=== PATIENT | male | born 1955 | race American Indian/Alaskan Native ===

== ENCOUNTER 2017-05-23 05:39 | Emergency (ER) | payer MEDICARE ==
[2017-05-23 05:48] VITALS: BP 157/97
--- NOTE | 2017-05-23 07:32 | Emergency Department Report ---
ED Rash HPI - HPI Chief Complaint: Extremity Injury, Lower Stated Complaint: L TOE INJURY Time Seen by Provider: 05/23/17 07:25 Duration: 1 month Location: Lower Extremities (fourth toe skin abrasion) Suspected Cause: Other (Ill-fitting shoes) Rash Symptoms: Yes Blistering ( left fourth toe), No Itching, No Facial Swelling , No Tongue/Oral Swelling, No Breathing Difficulties, No Choking Sensation, No Wheezing/Dyspnea, No Peeling, No Fever, No Lightheaded, No Malaise, No Myalgias Severity: severe (7/10) Other History: Patient reports that he has blisters on his left fourth toe times one month. He said his bit worried ill fitting shoes. He states toe is painful at 7 out of 10 and sore. Forced to walk and better with rest then. Over the counter medication taken without any relief. Patient also complained of itching between his toes for the last couple weeks. Denies any respiratory symptoms. Denies any nausea or vomiting. Patient denies that he is diabetic. He does see a foot doctor in a row. Patient said he is here for all call recovery program and needs to be in this ear for 28 days. He's had previous incident of past. History of chronic back pain and hardware in his back. He said he does have a primary care physician in [place]. Denies any fever or chills. Denies any numbness or tingling to toes on both feet. ED Review of Systems ROS: Stated complaint: L TOE INJURY Other details as noted in HPI Comment: All other systems reviewed and negative Constitutional: no symptoms reported Respiratory: no symptoms reported Cardiovascular: denies: chest pain, palpitations, edema, syncope Gastrointestinal: denies: nausea, vomiting Musculoskeletal: arthralgia. denies: back pain, joint swelling, myalgia Skin: pruritus, other (blister to left fourth toe with pain. Pain of itching between toes to both feet.) Neurological: denies: headache, numbness, paresthesias, confusion, abnormal gait , vertigo ED Past Medical Hx - Past Medical History Previous Medical History?: Yes Additional medical history: Chronic Back Pain - Surgical History Past Surgical History?: Yes Additional Surgical History: Hardware in back. - Family History Family history: hypertension - Social History Smoking Status: Current Every Day Smoker Substance Use Type: Alcohol Other Social History: She is currently in alcohol recovery program - Medications Home Medications: Home Medications Medication Instructions Recorded Confirmed Last Taken Type Cephalexin [Keflex] 500 mg PO Q8HR #21 cap 05/23/17 Unknown Rx Econazole 1% [Spectazole] 1 applicatio TP BID #1 tube 05/23/17 Unknown Rx Fluconazole [Diflucan TAB] 100 mg PO QDAY #2 tablet 05/23/17 Unknown Rx Ibuprofen [Motrin] 600 mg PO Q8H PRN #15 tablet 05/23/17 Unknown Rx Rash Exam - Exam General: Vital signs noted. No distress. Alert and acting appropriately. This is a 62-year-old male well-nourished well-developed in no acute distress. He is currently visiting from alcohol recovery program HEENT: No Periorbital Edema, No Conjuctival Injection, No Chemosis, No Perioral Edema, No Tongue Edema, No Uvular Edema, No Compromised Airway, No Drooling Lungs: Yes Good Air Exchange, No Wheezes, No Ronchi, No Stridor, No Cough, No Labored Respirations, No Retractions, No Use of Accessory Muscles, No Other Abnormal Lung Sounds Heart: Yes Regular, No Murmur Skin: Yes Tenderness (distal phalanx of left fourth toe), Yes Erythema ( erythemic area noted to distal phalanx left fourth toe.), Yes Other (noted dry scaly area between toes of both feet. No erythema. Ear moist.), No Urticarial Rash, No Maculopapular Rash, No Morbilliform rash, No Bulla(e), No Excoriations , No Weeping, No Edema, No Encrustations Other: Positive: Abdomen Normal, Neurologic Normal, Musculoskeletal Normal ED Course Vital Signs 05/23/17 05:45 Temperature 97.5 F L Pulse Rate 65 Respiratory 18 Rate Blood Pressure 157/97 O2 Sat by Pulse 100 Oximetry - Reevaluation(s) Reevaluation #1: 05/23/17 07:59 Patient stable throughout ED stay. He had areas to both feet cleansed. Patient also had Neosporin ointment placed to left distal phalanx that fourth toe with sterile dressing. He said his immunizations include tetanus is up-to- date. ED Medical Decision Making - Radiology Data Radiology results: report reviewed X-ray of left foot reveal no acute processes. No acute fracture or dislocation - Medical Decision Making ED Course:Patient here for complaints of dryness and scaling between toes to both feet and also blister to left fourth toe. X-ray of left foot reveal no acute bony abnormality. Area to left great toe plans with normal saline and Neosporin ointment placed the site followed by sterile dry dressing. Patient tetanus shot is up-to-date. I also discussed with patient that he has fungus to his feet between his toes and he'll need topical antifungal and also antibiotic to prevent from getting infection. He agrees to discharge treatment plan and diagnosis and discharged back to alcohol recovery program. Patient was given Motrin 800 mg emergency room and I instructed him that he needs to follow up with a foot doctor and will refer him to a foot doctor that is locally because he is going to be in the area for 28 days and his foot doctor where he lives's in [facility]. Patient is stable and discharged home with prescription physician for Econazole cream, motrin, Diflucan and Keflex Critical care attestation.: If time is entered above; I have spent that time in minutes in the direct care of this critically ill patient, excluding procedure time. ED Disposition Clinical Impression: Arthralgia of left foot Tinea pedis Qualifiers: Laterality: bilateral Qualified Code(s): B35.3 - Tinea pedis Foot abrasion, infected Qualifiers: Encounter type: initial encounter Laterality: left Qualified Code(s): S90.812A - Abrasion, left foot, initial encounter; L08.9 - Local infection of the skin and subcutaneous tissue, unspecified; L08.9 - Local infection of the skin and subcutaneous tissue, unspecified Disposition: DC-01 TO HOME OR SELFCARE Is pt being admited?: No Does the pt Need Aspirin: No Condition: Stable Instructions: Arthralgia (ED), Abrasion (ED), Antifungals (On the skin), Acute Wound Care (ED), Cellulitis (ED) Additional Instructions: Please keep affected areas clean and dry Apply antifungal cream to the feet between toes is instructed Take Antibiotic for infected abrasion to left fourth toe Apply Neosporin ointment to left fourth toe once daily and placed sterile dry dressing to site Follow-up with as recommended. Avoid wearing Wearing ill fitting shoe Prescriptions: Cephalexin [Keflex] 500 mg PO Q8HR #21 cap Econazole 1% [Spectazole] 1 applicatio TP BID #1 tube Fluconazole [Diflucan TAB] 100 mg PO QDAY #2 tablet Ibuprofen [Motrin] 600 mg PO Q8H PRN #15 tablet PRN Reason: Pain Referrals: JOANNA DUNN DPM [Staff Physician] - 2-3 Days Forms: Work/School Release Form(ED)
[2017-05-23] MEDS ORDERED: TRIPLE ANTIBIOTIC TP ONE (08:00)
[2017-05-23] MEDS ORDERED: MOTRIN PO ONE (08:02)
--- NOTE | 2017-05-23 08:12 | XRay Report ---
LEFT FOOT: Pain. The bony architecture is intact. Bony alignment is normal. No soft tissue abnormalities are seen. The joint spaces appear preserved. IMPRESSION: Normal left foot.
== END 2017-05-23 08:31 | disposition home or self-care (01) ==
LOC: ED 05:39
DX: S90.812A Abrasion, left foot, initial encounter (principal); M25.572 Pain in left ankle and joints of left foot; B35.3 Tinea pedis; L08.9 Local infection of the skin and subcutaneous tissue, unspecified; F17.200 Nicotine dependence, unspecified, uncomplicated; G89.29 Other chronic pain; X58.XXXA Exposure to other specified factors, initial encounter; Y93.89 Activity, other specified; Y99.8 Other external cause status; Y92.89 Other specified places as the place of occurrence of the external cause
CPT/HCPCS: 99283; A6250

== ENCOUNTER 2017-05-28 07:46 | Emergency (ER) | payer MEDICARE ==
[2017-05-28 09:09] VITALS: BP 150/105
--- NOTE | 2017-05-28 10:19 | Emergency Department Report ---
ED Medical Clearance HPI - General Chief complaint: Medical Clearance Stated complaint: MED REFILL Time Seen by Provider: 05/28/17 10:15 Source: patient Mode of arrival: Ambulatory - History of Present Illness Initial comments: Pt reports hx of CAD s/p stents and usually carries Nitro with him but lost it the other day. States he hasn't used it in a while but likes to have it with him. Denies any current or recent SOB, CP, or other complaints. -: Gradual, days(s) Reason for Medical Clearance: other (med refill) Compliant with Home Medications: Yes Traumatic Symptoms: denies traumatic injury Associated Symptoms: denies other symptoms. denies: chest pain, shortness of breath, palpitations, diaphoresis Treatments Prior to Arrival: none Home medications: Previous Rx's Medication Instructions Recorded Last Taken Type Cephalexin [Keflex] 500 mg PO Q8HR #21 cap 05/23/17 Unknown Rx Econazole 1% [Spectazole] 1 applicatio TP BID #1 tube 05/23/17 Unknown Rx Fluconazole [Diflucan TAB] 100 mg PO QDAY #2 tablet 05/23/17 Unknown Rx Ibuprofen [Motrin] 600 mg PO Q8H PRN #15 tablet 05/23/17 Unknown Rx Nitroglycerin [Nitrostat] 0.4 mg SL Q5M PRN #25 tab 05/28/17 Unknown Rx Allergies/Adverse reactions: Allergies Allergy/AdvReac Type Severity Reaction Status Date / Time No Known Allergies Allergy Unverified 05/23/17 06:00 ED Review of Systems ROS: Stated complaint: MED REFILL Other details as noted in HPI Constitutional: denies: chills, fever Eyes: denies: eye pain, eye discharge, vision change ENT: denies: ear pain, throat pain Respiratory: denies: cough, shortness of breath, wheezing Cardiovascular: denies: chest pain, palpitations Endocrine: no symptoms reported Gastrointestinal: denies: abdominal pain, nausea, diarrhea Genitourinary: denies: urgency, dysuria Musculoskeletal: denies: back pain, joint swelling, arthralgia Skin: denies: rash, lesions Neurological: denies: headache, weakness, paresthesias Psychiatric: denies: anxiety, depression Hematological/Lymphatic: denies: easy bleeding, easy bruising ED Past Medical Hx - Past Medical History Previous Medical History?: Yes Additional medical history: Chronic Back Pain - Surgical History Past Surgical History?: Yes Additional Surgical History: Hardware in back. Stents - Social History Smoking Status: Current Some Day Smoker Substance Use Type: None - Medications Home Medications: Home Medications Medication Instructions Recorded Confirmed Last Taken Type Cephalexin [Keflex] 500 mg PO Q8HR #21 cap 05/23/17 Unknown Rx Econazole 1% [Spectazole] 1 applicatio TP BID #1 tube 05/23/17 Unknown Rx Fluconazole [Diflucan TAB] 100 mg PO QDAY #2 tablet 05/23/17 Unknown Rx Ibuprofen [Motrin] 600 mg PO Q8H PRN #15 tablet 05/23/17 Unknown Rx Nitroglycerin [Nitrostat] 0.4 mg SL Q5M PRN #25 tab 05/28/17 Unknown Rx ED Physical Exam - General Limitations: No Limitations General appearance: alert, in no apparent distress - Head Head exam: Present: atraumatic, normocephalic - Eye Eye exam: Present: normal appearance - ENT ENT exam: Present: mucous membranes moist - Neck Neck exam: Present: normal inspection - Respiratory Respiratory exam: Present: normal lung sounds bilaterally. Absent: respiratory distress - Cardiovascular Cardiovascular Exam: Present: regular rate, normal rhythm. Absent: systolic murmur, diastolic murmur, rubs, gallop - GI/Abdominal GI/Abdominal exam: Present: soft, normal bowel sounds - Rectal Rectal exam: Present: deferred - Extremities Exam Extremities exam: Present: normal inspection - Back Exam Back exam: Present: normal inspection - Neurological Exam Neurological exam: Present: alert, oriented X3 - Psychiatric Psychiatric exam: Present: normal affect, normal mood - Skin Skin exam: Present: warm, dry, intact, normal color. Absent: rash ED Course Vital Signs 05/28/17 09:08 Temperature 98.5 F Pulse Rate 89 Respiratory 16 Rate Blood Pressure 150/105 O2 Sat by Pulse 99 Oximetry - Reevaluation(s) Reevaluation #1: 05/28/17 10:17 Pt is in NAD and stable for d/c. ED Medical Decision Making - Medical Decision Making Pt asymptomatic. Will refill until his PCP appt next week. - Differential Diagnosis med refill, elevated bp ED Disposition Clinical Impression: Medication refill Disposition: DC-01 TO HOME OR SELFCARE Is pt being admited?: No Condition: Good Instructions: Nitroglycerin (By mouth) Prescriptions: Nitroglycerin [Nitrostat] 0.4 mg SL Q5M PRN #25 tab PRN Reason: Chest Pain Referrals: PRIMARY CARE,MD [Primary Care Provider] - 3-5 Days Time of Disposition: 10:18
== END 2017-05-28 10:38 | disposition home or self-care (01) ==
LOC: ED 07:46
DX: Z76.0 Encounter for issue of repeat prescription (principal); G89.29 Other chronic pain; F17.200 Nicotine dependence, unspecified, uncomplicated
CPT/HCPCS: 99282

== ENCOUNTER 2017-05-29 08:42 | Emergency (ER) | payer MEDICARE ==
[2017-05-29 08:59] VITALS: BP 154/104
--- NOTE | 2017-05-29 10:57 | Emergency Department Report ---
ED Recheck HPI - General Chief Complaint: Extremity Injury, Lower Stated Complaint: LEFT TOE PAIN Time Seen by Provider: 05/29/17 10:45 Source: patient Mode of arrival: Ambulatory Limitations: No Limitations - History of Present Illness Initial Comments: This is a 62-year-old male nontoxic, well nourished in appearance, no acute signs of distress presents to the ED for medication refill. Patient stated he was seen here on 05/23/2017 and was diagnosed with a fungal toe infection and received different prescriptions but patient stated he never filled it and is the symptoms are not resolving. Patient denies any trauma to the region or changing of symptoms. Patient denies any numbness, tingling, fever, chills, nausea, vomiting, chest pain or shortness of breath. Patient denies history of diabetes. Patient denies any drug allergies. Past medical history includes hypertension and NC. MD Complaint: medication refill request Initial Visit For: other (tinea pedis) Returns Today for: request for prescription Symptoms Since Prior Visit: no new symptoms Associated Symptoms: none. denies: fever, chills, chest pain, shortness of breath, rash, malaise, nasuea, abdominal pain - Related Data Previous Rx's Medication Instructions Recorded Last Taken Type Cephalexin [Keflex] 500 mg PO Q8HR #21 cap 05/23/17 Unknown Rx Econazole 1% [Spectazole] 1 applicatio TP BID #1 tube 05/23/17 Unknown Rx Fluconazole [Diflucan TAB] 100 mg PO QDAY #2 tablet 05/23/17 Unknown Rx Ibuprofen [Motrin] 600 mg PO Q8H PRN #15 tablet 05/23/17 Unknown Rx Nitroglycerin [Nitrostat] 0.4 mg SL Q5M PRN #25 tab 05/28/17 Unknown Rx Cephalexin [Keflex] 500 mg PO Q8HR #21 cap 05/29/17 Unknown Rx Econazole 1% [Spectazole] 1 applicatio TP BID #1 tube 05/29/17 Unknown Rx Fluconazole [Diflucan] 100 mg PO QDAY #2 bottle 05/29/17 Unknown Rx Ibuprofen [Motrin 600 MG tab] 600 mg PO Q8H PRN #30 tablet 05/29/17 Unknown Rx Allergies Allergy/AdvReac Type Severity Reaction Status Date / Time No Known Allergies Allergy Unverified 05/23/17 06:00 ED Review of Systems ROS: Stated complaint: LEFT TOE PAIN Other details as noted in HPI Constitutional: denies: chills, fever Eyes: denies: eye pain, eye discharge, vision change ENT: denies: ear pain, throat pain Respiratory: denies: cough, shortness of breath, wheezing Cardiovascular: denies: chest pain, palpitations Endocrine: no symptoms reported Gastrointestinal: denies: abdominal pain, nausea, diarrhea Genitourinary: denies: urgency, dysuria Musculoskeletal: denies: back pain, joint swelling, arthralgia Skin: denies: rash, lesions Neurological: denies: headache, weakness, paresthesias Psychiatric: denies: anxiety, depression Hematological/Lymphatic: denies: easy bleeding, easy bruising ED Past Medical Hx - Past Medical History Hx Hypertension: Yes Hx Heart Attack/AMI: Yes Additional medical history: Chronic Back Pain - Surgical History Additional Surgical History: Hardware in back. Stents - Social History Smoking Status: Never Smoker Substance Use Type: None - Medications Home Medications: Home Medications Medication Instructions Recorded Confirmed Last Taken Type Cephalexin [Keflex] 500 mg PO Q8HR #21 cap 05/23/17 Unknown Rx Econazole 1% [Spectazole] 1 applicatio TP BID #1 tube 05/23/17 Unknown Rx Fluconazole [Diflucan TAB] 100 mg PO QDAY #2 tablet 05/23/17 Unknown Rx Ibuprofen [Motrin] 600 mg PO Q8H PRN #15 tablet 05/23/17 Unknown Rx Nitroglycerin [Nitrostat] 0.4 mg SL Q5M PRN #25 tab 05/28/17 Unknown Rx Cephalexin [Keflex] 500 mg PO Q8HR #21 cap 05/29/17 Unknown Rx Econazole 1% [Spectazole] 1 applicatio TP BID #1 tube 05/29/17 Unknown Rx Fluconazole [Diflucan] 100 mg PO QDAY #2 bottle 05/29/17 Unknown Rx Ibuprofen [Motrin 600 MG tab] 600 mg PO Q8H PRN #30 tablet 05/29/17 Unknown Rx ED Physical Exam - General Limitations: No Limitations General appearance: alert, in no apparent distress - Head Head exam: Present: atraumatic, normocephalic - Eye Eye exam: Present: normal appearance Pupils: Present: normal accommodation - ENT ENT exam: Present: normal exam, mucous membranes moist - Neck Neck exam: Present: normal inspection, full ROM - Respiratory Respiratory exam: Present: normal lung sounds bilaterally. Absent: respiratory distress - Cardiovascular Cardiovascular Exam: Present: regular rate, normal rhythm, normal heart sounds. Absent: systolic murmur, diastolic murmur, rubs, gallop - GI/Abdominal GI/Abdominal exam: Present: soft, normal bowel sounds. Absent: distended, tenderness, guarding, rebound, rigid, diminished bowel sounds - Rectal Rectal exam: Present: deferred - Extremities Exam Extremities exam: Present: normal inspection, full ROM, normal capillary refill. Absent: tenderness, pedal edema, joint swelling, calf tenderness - Expanded Lower Extremity Exam Left Hip exam: Present: normal inspection (bilateral exam), full ROM Upper Leg exam: Present: normal inspection (bilateral exam), full ROM Knee exam: Present: normal inspection (bilateral exam), full ROM Lower Leg exam: Present: normal inspection (bilateral exam), full ROM Ankle exam: Present: normal inspection (bilateral exam), full ROM Foot/Toe exam: Present: normal inspection (bilateral exam), full ROM, tenderness (distal phalanx of left fourth toe.), erythema (distal phalanx left fourth toe with dry scaly area between toes of both feet. ). Absent: swelling, abrasion, laceration, ecchymosis, deformity, crepidus, dislocation, amputation, puncture wound, foreign body, calcaneal tenderness, tenderness at base of 5th metatarsal, nail avulsion, subungual hematoma Neuro vascular tendon exam: Present: no vascular compromise. Absent: pulse deficit, abnormal cap refill, motor deficit, sensory deficit, tendon deficit, extremity cold to touch, pallor, abnormal 2-point discrimination, decreased fine /light touch, foot drop, peroneal nerve deficit, significant pain with passive ROM of distal joint Gait: Positive: observed and normal - Back Exam Back exam: Present: normal inspection, full ROM. Absent: tenderness, CVA tenderness (R), CVA tenderness (L), muscle spasm, paraspinal tenderness, rash noted - Neurological Exam Neurological exam: Present: alert, oriented X3, CN II-XII intact, normal gait, reflexes normal - Psychiatric Psychiatric exam: Present: normal affect, normal mood - Skin Skin exam: Present: warm, dry, intact, normal color. Absent: rash ED Course Vital Signs 05/29/17 08:55 Temperature 97.9 F Pulse Rate 93 H Respiratory 20 Rate Blood Pressure 154/104 - Reevaluation(s) Reevaluation #1: 05/29/17 10:59 Patient is speaking in full sentences with no signs of distress noted. ED Recheck MDM - Medical Decision Making This is a 62-year-old male that is here for a refill of his previous medication that he received on 05/23/2017. I obtain his previous records patient has been prescribed Keflex, ibuprofen, Diflucan, and Spectazole topical. I will refill this prescription and patient received a GoodRx card and information about pelvic/Kroeber that is a possible receding cheaper antibiotics. Patient was instructed to follow-up with a primary care doctor in 3-5 days or if symptoms worsen and continue return to emergency room as soon as possible possible. At time time of discharge, the patient does not seem toxic or ill in appearance. No acute signs of distress noted. Patient agrees to discharge treatment plan of care. No further questions noted by the patient. Critical care attestation.: If time is entered above; I have spent that time in minutes in the direct care of this critically ill patient, excluding procedure time. ED Disposition Clinical Impression: Tinea pedis Qualifiers: Laterality: bilateral Qualified Code(s): B35.3 - Tinea pedis Disposition: DC-01 TO HOME OR SELFCARE Is pt being admited?: No Does the pt Need Aspirin: No Condition: Stable Instructions: Tinea Pedis (ED) Additional Instructions: Follow-up with a primary care doctor in 3-5 days or if symptoms worsen and continue return to emergency room as soon as possible possible. Prescriptions: Cephalexin [Keflex] 500 mg PO Q8HR #21 cap Econazole 1% [Spectazole] 1 applicatio TP BID #1 tube Fluconazole [Diflucan] 100 mg PO QDAY #2 bottle Ibuprofen [Motrin 600 MG tab] 600 mg PO Q8H PRN #30 tablet PRN Reason: Pain Referrals: PRIMARY CARE, [Primary Care Provider] - 3-5 Days MIGUEL KEENAN MD [Staff Physician] - 3-5 Days [facility] [Outside] - 3-5 Days [facility] [Outside] - 3-5 Days
== END 2017-05-29 11:31 | disposition home or self-care (01) ==
LOC: ED 08:42
DX: B35.3 Tinea pedis (principal); I25.2 Old myocardial infarction; I10 Essential (primary) hypertension; G89.29 Other chronic pain
CPT/HCPCS: 99282

== ENCOUNTER 2017-06-20 10:53 | Emergency (ER) | payer MEDICARE ==
[2017-06-20 11:02] VITALS: BP 176/101
--- NOTE | 2017-06-20 12:38 | Emergency Department Report ---
ED Lower Extremity HPI - General Chief Complaint: Extremity Injury, Lower Stated Complaint: LEFT TOE PAIN Time Seen by Provider: 06/20/17 11:44 Source: patient Mode of arrival: Ambulatory Limitations: No Limitations - History of Present Illness Initial Comments: This is a 62-year-old male known to me nontoxic, well nourished in appearance, no acute signs of distress presents to the ED complaining of left toe pain x1 year. Patient was here on 05/29/2017 and was treated with fungal infection to the toes. Patient stated those symptoms are resolved and now wants to be treated for his toe pain. Patient denies any trauma to the regoin. Denies any numbness, tingling, fever, chills, headache, stiff neck, nausea, vomiting, chest pain, shortness of breathe, joint swelling, joint redness. Patient describes pain as aching with level of 8/10. Denies any allergies or PMH. MD Complaint: other (3rd toe pain) -: Gradual, year(s) (1) Injury: Toes: Left (3rd) Severity: mild Severity scale (0 -10): 8 Improves With: nothing Worsens With: nothing Associated Symptoms: ambulatory. denies: snap/pop sensation, swelling, numbness , tingling, unable to bear weight, able to partially bear weight - Related Data Previous Rx's Medication Instructions Recorded Last Taken Type Cephalexin [Keflex] 500 mg PO Q8HR #21 cap 05/23/17 Unknown Rx Econazole 1% [Spectazole] 1 applicatio TP BID #1 tube 05/23/17 Unknown Rx Fluconazole [Diflucan TAB] 100 mg PO QDAY #2 tablet 05/23/17 Unknown Rx Ibuprofen [Motrin] 600 mg PO Q8H PRN #15 tablet 05/23/17 Unknown Rx Nitroglycerin [Nitrostat] 0.4 mg SL Q5M PRN #25 tab 05/28/17 Unknown Rx Cephalexin [Keflex] 500 mg PO Q8HR #21 cap 05/29/17 Unknown Rx Econazole 1% [Spectazole] 1 applicatio TP BID #1 tube 05/29/17 Unknown Rx Fluconazole [Diflucan] 100 mg PO QDAY #2 bottle 05/29/17 Unknown Rx Ibuprofen [Motrin 600 MG tab] 600 mg PO Q8H PRN #30 tablet 05/29/17 Unknown Rx Ibuprofen [Motrin 600 MG tab] 600 mg PO Q8H PRN #30 tablet 06/20/17 Unknown Rx Allergies Allergy/AdvReac Type Severity Reaction Status Date / Time No Known Allergies Allergy Verified 06/20/17 10:58 ED Review of Systems ROS: Stated complaint: LEFT TOE PAIN Other details as noted in HPI Constitutional: denies: chills, fever Eyes: denies: eye pain, eye discharge, vision change ENT: denies: ear pain, throat pain Respiratory: denies: cough, shortness of breath, wheezing Cardiovascular: denies: chest pain, palpitations Endocrine: no symptoms reported Gastrointestinal: denies: abdominal pain, nausea, diarrhea Genitourinary: denies: urgency, dysuria Musculoskeletal: denies: back pain, joint swelling, arthralgia Skin: denies: rash, lesions Neurological: denies: headache, weakness, paresthesias Psychiatric: denies: anxiety, depression Hematological/Lymphatic: denies: easy bleeding, easy bruising ED Past Medical Hx - Past Medical History Hx Hypertension: Yes Hx Heart Attack/AMI: Yes Additional medical history: Chronic Back Pain - Surgical History Additional Surgical History: Hardware in back. Stents - Social History Smoking Status: Never Smoker Substance Use Type: None - Medications Home Medications: Home Medications Medication Instructions Recorded Confirmed Last Taken Type Cephalexin [Keflex] 500 mg PO Q8HR #21 cap 05/23/17 Unknown Rx Econazole 1% [Spectazole] 1 applicatio TP BID #1 tube 05/23/17 Unknown Rx Fluconazole [Diflucan TAB] 100 mg PO QDAY #2 tablet 05/23/17 Unknown Rx Ibuprofen [Motrin] 600 mg PO Q8H PRN #15 tablet 05/23/17 Unknown Rx Nitroglycerin [Nitrostat] 0.4 mg SL Q5M PRN #25 tab 05/28/17 Unknown Rx Cephalexin [Keflex] 500 mg PO Q8HR #21 cap 05/29/17 Unknown Rx Econazole 1% [Spectazole] 1 applicatio TP BID #1 tube 05/29/17 Unknown Rx Fluconazole [Diflucan] 100 mg PO QDAY #2 bottle 05/29/17 Unknown Rx Ibuprofen [Motrin 600 MG tab] 600 mg PO Q8H PRN #30 tablet 05/29/17 Unknown Rx Ibuprofen [Motrin 600 MG tab] 600 mg PO Q8H PRN #30 tablet 06/20/17 Unknown Rx ED Physical Exam - General Limitations: No Limitations General appearance: alert, in no apparent distress - Head Head exam: Present: atraumatic, normocephalic, normal inspection - Eye Eye exam: Present: normal appearance, PERRL, EOMI. Absent: scleral icterus, conjunctival injection, nystagmus, periorbital swelling, periorbital tenderness Pupils: Present: normal accommodation - ENT ENT exam: Present: normal exam, normal orophraynx, mucous membranes moist, TM's normal bilaterally, normal external ear exam - Neck Neck exam: Present: normal inspection, full ROM. Absent: tenderness, meningismus, lymphadenopathy, thyromegaly - Respiratory Respiratory exam: Present: normal lung sounds bilaterally. Absent: respiratory distress, wheezes, rales, rhonchi, stridor, chest wall tenderness, accessory muscle use, decreased breath sounds, prolonged expiratory - Cardiovascular Cardiovascular Exam: Present: regular rate, normal rhythm, irregular rhythm, normal heart sounds. Absent: bradycardia, tachycardia, systolic murmur, diastolic murmur, rubs, gallop - GI/Abdominal GI/Abdominal exam: Present: soft, normal bowel sounds. Absent: distended, tenderness, guarding, rebound, rigid, diminished bowel sounds - Rectal Rectal exam: Present: deferred - Extremities Exam Extremities exam: Present: normal inspection, full ROM, normal capillary refill. Absent: tenderness, pedal edema, joint swelling, calf tenderness - Expanded Lower Extremity Exam Left Hip exam: Present: normal inspection, full ROM Upper Leg exam: Present: normal inspection, full ROM Knee exam: Present: normal inspection, full ROM Lower Leg exam: Present: normal inspection, full ROM Ankle exam: Present: normal inspection, full ROM Foot/Toe exam: Present: normal inspection, full ROM, tenderness (0.5 cm round callus). Absent: swelling, abrasion, laceration, ecchymosis, deformity, crepidus, dislocation, erythema, amputation, puncture wound, foreign body, calcaneal tenderness, tenderness at base of 5th metatarsal, nail avulsion, subungual hematoma Neuro vascular tendon exam: Present: no vascular compromise. Absent: pulse deficit, abnormal cap refill, motor deficit, sensory deficit, tendon deficit, extremity cold to touch, pallor, abnormal 2-point discrimination, decreased fine /light touch, foot drop, peroneal nerve deficit, significant pain with passive ROM of distal joint Gait: Positive: observed and normal 1 - callus - Back Exam Back exam: Present: normal inspection, full ROM. Absent: tenderness, CVA tenderness (R), CVA tenderness (L), muscle spasm, paraspinal tenderness, vertebral tenderness, rash noted - Neurological Exam Neurological exam: Present: alert, oriented X3, CN II-XII intact, normal gait, reflexes normal - Psychiatric Psychiatric exam: Present: normal affect, normal mood - Skin Skin exam: Present: warm, dry, intact, normal color. Absent: rash ED Course Vital Signs 06/20/17 10:58 Temperature 97.6 F Pulse Rate 84 Respiratory 18 Rate Blood Pressure 176/101 O2 Sat by Pulse 98 Oximetry - Reevaluation(s) Reevaluation #1: 06/20/17 12:45 Patient is speaking in full sentences with no signs of distress noted. ED Lower Extremity MDM - Medical Decision Making 62-year-old male that presents with callus pain. Patient was examined by me and patient is stable. Patient will be treated for pain and gave follow-up instructions. Patient is hemodynamically stable with stable vital signs. Patient states he is feeling better. At time time of discharge, the patient does not seem toxic or ill in appearance. No acute signs of distress noted. Patient agrees to discharge treatment plan of care. No further questions noted by the patient. Franklin stated has medication for his blood pressure and just took it 30 mins [employer]EST[employer]ORDIN[employer]. Patient stated has PCP for follow-up of b/p. Patient was eduated about b/p control and my concerns. Patient stated will f/u with PCP for hypertension. Critical care attestation.: If time is entered above; I have spent that time in minutes in the direct care of this critically ill patient, excluding procedure time. ED Disposition Clinical Impression: Callus of foot Hypertension Qualifiers: Hypertension type: unspecified Qualified Code(s): I10 - Essential (primary) hypertension Disposition: - TO HOME OR SELFCARE Is pt being admited?: No Does the pt Need Aspirin: No Condition: Stable Instructions: Ibuprofen (By mouth), Hypertension (ED) Additional Instructions: Follow-up with a primary care doctor/chain dyer in 3-5 days or if symptoms worsen or continue return to emergency room as soon as possible. You have elevated blood pressure and you must take your medications and keep a low sodium intake and exercise. Follow-up with your primary care doctor in 24 hours for your blood pressure. Prescriptions: Ibuprofen [Motrin 600 MG tab] 600 mg PO Q8H PRN #30 tablet PRN Reason: Pain Referrals: PRIMARY CARE, [Primary Care Provider] - 3-5 Days KATHRIN RICH MD [Staff Physician] - 3-5 Days [facility] [Outside] - 3-5 Days [facility] [Outside] - 3-5 Days Forms: Work/School Release Form(ED)
== END 2017-06-20 13:06 | disposition home or self-care (01) ==
LOC: ED 10:53
DX: L84 Corns and callosities (principal); I10 Essential (primary) hypertension; I25.2 Old myocardial infarction; G89.29 Other chronic pain
CPT/HCPCS: 99282

== ENCOUNTER 2017-11-18 10:05 | Observation (INO) | payer MEDICARE ==
[2017-11-18] MEDS ORDERED: ASPIRIN PO ONE (10:20)
[2017-11-18 11:18] LABS: Basophils % (Auto) 0.9 % (0.0-1.8); Eosinophils # (Auto) 0.2 K/mm3 (0.0-0.4); Eosinophils % (Auto) 3.6 % (0.0-4.3); Hematocrit 39.6 % (35.5-45.6); Hemoglobin 13.1 gm/dl (11.8-15.2); Lymphocytes # (Auto) 1.1 K/mm3 (1.2-5.4); Lymphocytes % (Auto) 27.1 % (13.4-35.0); Mean Corpuscular HGB Conc 33 % (32-34); Mean Corpuscular Hemoglobin 26 pg (28-32); Mean Corpuscular Volume 80 fl (84-94); Monocytes # (Auto) 0.3 K/mm3 (0.0-0.8); Monocytes % (Auto) 7.6 % (0.0-7.3); Platelet Count 223 K/mm3 (140-440); Red Blood Count 4.95 M/mm3 (3.65-5.03)
[2017-11-18 11:40] LABS: BUN/Creatinine Ratio 16; Blood Urea Nitrogen 18 mg/dL (9-20); Calcium 9.3 mg/dL (8.4-10.2); Hemolysis Index 4
[2017-11-18] MEDS ORDERED: NACL 0.9% 1000 ML 1,000 ML IV ONE (12:00)
[2017-11-18] MEDS ORDERED: NACL 0.9% 1000 ML 1,000 ML ONE (12:02)
--- NOTE | 2017-11-18 13:35 | Emergency Department Report ---
ED Chest Pain HPI - General Chief Complaint: Chest Pain Stated Complaint: CP Time Seen by Provider: 11/18/17 12:46 Source: patient Mode of arrival: Ambulatory Limitations: No Limitations - History of Present Illness Initial Comments: Patient is a 62-year-old male who I think is residing at the [facility]. He states he went to the [facility] and requested a nitroglycerin. He is an outpatient there I believe for alcohol and cocaine abuse. He states that he is status post cardiac stenting in [facility]. He states he had chest pain and sweating/shortness of breath for about a half an hour this morning. He thinks he had a nitroglycerin it would have resolved. MD Complaint: chest pain -: Gradual Onset: during rest Pain Location: substernal Pain Radiation: none Severity: moderate Quality: tightness, heaviness Consistency: constant, now resolved Improves With: other (he believes nitroglycerin would've helped) Worsens With: nothing Context: other (coronary artery disease status post PCI) re: nausea, diaphoresis, dyspnea Other Symptoms: denies: cough, fever, syncope Treatments Prior to Arrival: none Aspirin use within the Past 7 Days: (1) Yes - Related Data Previous Rx's Medication Instructions Recorded Last Taken Type Cephalexin [Keflex] 500 mg PO Q8HR #21 cap 05/23/17 Unknown Rx Econazole 1% [Spectazole] 1 applicatio TP BID #1 tube 05/23/17 Unknown Rx Fluconazole [Diflucan TAB] 100 mg PO QDAY #2 tablet 05/23/17 Unknown Rx Ibuprofen [Motrin] 600 mg PO Q8H PRN #15 tablet 05/23/17 Unknown Rx Nitroglycerin [Nitrostat] 0.4 mg SL Q5M PRN #25 tab 05/28/17 Unknown Rx Cephalexin [Keflex] 500 mg PO Q8HR #21 cap 05/29/17 Unknown Rx Econazole 1% [Spectazole] 1 applicatio TP BID #1 tube 05/29/17 Unknown Rx Fluconazole [Diflucan] 100 mg PO QDAY #2 bottle 05/29/17 Unknown Rx Ibuprofen [Motrin 600 MG tab] 600 mg PO Q8H PRN #30 tablet 05/29/17 Unknown Rx Ibuprofen [Motrin 600 MG tab] 600 mg PO Q8H PRN #30 tablet 06/20/17 Unknown Rx Allergies Allergy/AdvReac Type Severity Reaction Status Date / Time No Known Allergies Allergy Verified 06/20/17 10:58 Heart Score - HEART Score History: Moderately suspicious EKG: Non-specific Age: 45-65 Risk factors: > 3 risk factors or hx of atherosclerotic disease Troponin: < normal limit HEART Score: 5 - Critical Actions Critical Actions: 4-6 pts:12-16.6% risk of adverse cardiac event. Should be admitted ED Review of Systems ROS: Stated complaint: CP Other details as noted in HPI Constitutional: denies: chills, fever Eyes: denies: eye pain, eye discharge, vision change ENT: denies: ear pain, throat pain Respiratory: shortness of breath (only during this episode). denies: cough, wheezing Cardiovascular: chest pain. denies: palpitations Endocrine: no symptoms reported Gastrointestinal: denies: abdominal pain, nausea, diarrhea Genitourinary: denies: urgency, dysuria Musculoskeletal: denies: back pain, joint swelling, arthralgia Skin: denies: rash, lesions Neurological: denies: headache, weakness, paresthesias Psychiatric: denies: anxiety, depression Hematological/Lymphatic: denies: easy bleeding, easy bruising ED Past Medical Hx - Past Medical History Previous Medical History?: Yes Hx Hypertension: Yes Hx Heart Attack/AMI: Yes Additional medical history: Chronic Back Pain - Surgical History Additional Surgical History: Hardware in back. Stents - Social History Smoking Status: Current Every Day Smoker Substance Use Type: Alcohol, Cocaine - Medications Home Medications: Home Medications Medication Instructions Recorded Confirmed Last Taken Type Cephalexin [Keflex] 500 mg PO Q8HR #21 cap 05/23/17 Unknown Rx Econazole 1% [Spectazole] 1 applicatio TP BID #1 tube 05/23/17 Unknown Rx Fluconazole [Diflucan TAB] 100 mg PO QDAY #2 tablet 05/23/17 Unknown Rx Ibuprofen [Motrin] 600 mg PO Q8H PRN #15 tablet 05/23/17 Unknown Rx Nitroglycerin [Nitrostat] 0.4 mg SL Q5M PRN #25 tab 05/28/17 Unknown Rx Cephalexin [Keflex] 500 mg PO Q8HR #21 cap 05/29/17 Unknown Rx Econazole 1% [Spectazole] 1 applicatio TP BID #1 tube 05/29/17 Unknown Rx Fluconazole [Diflucan] 100 mg PO QDAY #2 bottle 05/29/17 Unknown Rx Ibuprofen [Motrin 600 MG tab] 600 mg PO Q8H PRN #30 tablet 05/29/17 Unknown Rx Ibuprofen [Motrin 600 MG tab] 600 mg PO Q8H PRN #30 tablet 06/20/17 Unknown Rx ED Physical Exam - General Limitations: No Limitations General appearance: alert, in no apparent distress - Head Head exam: Present: atraumatic, normocephalic - Eye Eye exam: Present: normal appearance. Absent: scleral icterus - ENT ENT exam: Present: mucous membranes moist - Neck Neck exam: Present: normal inspection. Absent: tenderness, meningismus - Respiratory Respiratory exam: Present: normal lung sounds bilaterally. Absent: respiratory distress - Cardiovascular Cardiovascular Exam: Present: regular rate, normal rhythm. Absent: systolic murmur, diastolic murmur, rubs, gallop - GI/Abdominal GI/Abdominal exam: Present: soft, normal bowel sounds. Absent: distended, tenderness, guarding, rebound, rigid - Rectal Rectal exam: Present: deferred - Extremities Exam Extremities exam: Present: normal inspection - Back Exam Back exam: Present: normal inspection - Neurological Exam Neurological exam: Present: alert, oriented X3, CN II-XII intact. Absent: motor sensory deficit - Psychiatric Psychiatric exam: Present: normal affect, normal mood - Skin Skin exam: Present: warm, dry, intact, normal color. Absent: rash ED Course Vital Signs 11/18/17 11/18/17 11/18/17 10:17 12:00 12:15 Temperature 97.3 F L Pulse Rate 65 49 L 46 L Respiratory 18 19 16 Rate Blood Pressure 106/70 95/60 105/60 O2 Sat by Pulse 100 99 98 Oximetry 11/18/17 11/18/17 11/18/17 12:30 12:45 13:00 Temperature Pulse Rate 53 L 49 L 45 L Respiratory 16 12 16 Rate Blood Pressure 99/57 106/64 99/64 O2 Sat by Pulse 97 100 100 Oximetry 11/18/17 13:16 Temperature Pulse Rate 56 L Respiratory 13 Rate Blood Pressure 95/55 O2 Sat by Pulse 99 Oximetry - Reevaluation(s) Reevaluation #1: The patient was admitted by Dr. Rosario to the hospitalist service for further care and evaluation. 11/18/17 14:56 HANDY score - Handy Score Age > 65: (0) No Aspirin use within the Past 7 Days: (1) Yes 3 or more CAD Risk Factors: (1) Yes 2 or more Angina events in past 24 hrs: (0) No Known CAD with more than 50% Stenosis: (1) Yes Elevated Cardiac Markers: (0) No ST Deviation Greater than 0.5mm: (0) No HANDY Score: 3 ED Medical Decision Making - Lab Data Result diagrams: 11/18/17 11:06 11/18/17 11:06 Laboratory Results - last 24 hr 11/18/17 11/18/17 11:06 11:06 WBC 4.2 L RBC 4.95 Hgb 13.1 Hct 39.6 MCV 80 L MCH 26 L MCHC 33 RDW 16.0 H Plt Count 223 Lymph % (Auto) 27.1 Lander % (Auto) 7.6 H Eos % (Auto) 3.6 Baso % (Auto) 0.9 Lymph # 1.1 L Lander # 0.3 Eos # 0.2 Baso # 0.0 Seg Neutrophils % 60.8 Seg Neutrophils # 2.6 Sodium 137 Potassium 4.1 Chloride 100.5 Carbon Dioxide 25 Anion Gap 16 BUN 18 Creatinine 1.1 Estimated GFR > 60 BUN/Creatinine Ratio 16 Glucose 92 Calcium 9.3 Troponin T < 0.010 Laboratory Results - last 24 hr 11/18/17 11/18/17 11/18/17 11:06 11:06 13:42 WBC 4.2 L RBC 4.95 Hgb 13.1 Hct 39.6 MCV 80 L MCH 26 L MCHC 33 RDW 16.0 H Plt Count 223 Lymph % (Auto) 27.1 [place]ander % (Auto) 7.6 H Eos % (Auto) 3.6 Baso % (Auto) 0.9 Lymph # 1.1 L Lander # 0.3 Eos # 0.2 Baso # 0.0 Seg Neutrophils % 60.8 Seg Neutrophils # 2.6 PT INR APTT Sodium 137 Potassium 4.1 Chloride 100.5 Carbon Dioxide 25 Anion Gap 16 BUN 18 Creatinine 1.1 Estimated GFR > 60 BUN/Creatinine Ratio 16 Glucose 92 Calcium 9.3 Magnesium Total Bilirubin Direct Bilirubin Indirect Bilirubin AST ALT Alkaline Phosphatase Troponin T < 0.010 < 0.010 NT-Pro-B Natriuret Pep Total Protein Albumin Albumin/Globulin Ratio 11/18/17 11/18/17 11/18/17 14:05 14:05 14:05 WBC RBC Hgb Hct MCV MCH MCHC RDW Plt Count Lymph % (Auto) Lander % (Auto) Eos % (Auto) Baso % (Auto) Lymph # Lander # Eos # Baso # Seg Neutrophils % Seg Neutrophils # PT 14.5 INR 1.07 APTT 29.7 Sodium Potassium Chloride Carbon Dioxide Anion Gap BUN Creatinine Estimated GFR BUN/Creatinine Ratio Glucose Calcium Magnesium 1.90 Total Bilirubin 0.20 Direct Bilirubin < 0.2 Indirect Bilirubin 0.0 AST 21 ALT 15 Alkaline Phosphatase 57 Troponin T NT-Pro-B Natriuret Pep 126.6 Total Protein 6.3 Albumin 4.0 Albumin/Globulin Ratio 1.7 - EKG Data -: EKG Interpreted by Me EKG shows normal: sinus rhythm, axis, intervals, ST-T waves - EKG Data Interpretation: nonspecific ST-T wave peter, other (old inferior zone. Right bundle branch block) - Radiology Data interpreted by me: Chest x-ray no acute process Critical care attestation.: If time is entered above; I have spent that time in minutes in the direct care of this critically ill patient, excluding procedure time. ED Disposition Clinical Impression: Chest pain Qualifiers: Chest pain type: unspecified Qualified Code(s): R07.9 - Chest pain, unspecified Coronary artery disease Qualifiers: Coronary Disease-Associated Artery/Lesion type: unspecified vessel or lesion type [place] vs. transplanted heart: [place] heart Associated angina: with unspecified angina Qualified Code(s): I25.119 - Atherosclerotic heart disease of [place] coronary artery with unspecified angina pectoris Disposition: OP ADMIT IP TO THIS HOSP Is pt being admited?: Yes Does the pt Need Aspirin: Yes Condition: Stable Instructions: Chest Pain (ED) Referrals: PRIMARY CARE, [Primary Care Provider] - 3-5 Days Time of Disposition: 14:59
[2017-11-18 14:34] LABS: Alanine Aminotransferase 15 units/L (7-56)
[2017-11-18 14:37] LABS: Bilirubin,Direct < 0.2 mg/dL (0-0.2); INR 1.07 (0.87-1.13); Partial Thromboplastin Time 29.7 Sec. (24.2-36.6)
--- NOTE | 2017-11-18 15:18 | XRay Report ---
FINAL REPORT EXAM: XR CHEST 1V AP HISTORY: cp TECHNIQUE: Frontal portable examination of the chest PRIORS: None FINDINGS: Thoracic spine surgical hardware in place. It appears intact. Atherosclerotic change in the thoracic aorta. Degenerative change in the thoracic spine. There is no visible pulmonary consolidation, pleural effusion, or pneumothorax. Cardiac silhouette size is normal without vascular congestion. IMPRESSION: No acute cardiopulmonary disease in the visualized chest
[2017-11-18 16:19] LABS: Bilirubin,Urine NEG (Negative); Blood,Urine NEG (Negative); Color,Urine Straw (Yellow); Protein,Urine <15 mg/dL mg/dL (Negative); Urobilinogen,Urine < 2.0 mg/dL (<2.0); WBC,Urine < 1.0 /HPF (0.0-6.0)
[2017-11-18 16:27] LABS: Amphetamine Screen,Urine PRESUMPTIVE NEGATIVE; Benzodiazepines Screen,Urine PRESUMPTIVE NEGATIVE; Cannabinoid Screen,Urine PRESUMPTIVE NEGATIVE; Cocaine Screen,Urine PRESUMPTIVE NEGATIVE; Methadone Screen,Urine PRESUMPTIVE NEGATIVE; Opiate Screen,Urine PRESUMPTIVE NEGATIVE
[2017-11-18] MEDS ORDERED: MOTRIN PO PRN (21:55)
--- NOTE | 2017-11-18 21:55 | History and Physical Report ---
History of Present Illness Date of examination: 11/18/17 Date of admission: 11/18/17 16:46 Chief complaint: Cc Chest pain for 1 day History of present illness: History of Present Illness: Patient is a 62-year-old male with HIV comes in for Chest pain -L sided intermittent for 1 day.No radiation. No diaphoresis or palitations.No Sob .Pain is sharp intermittent and 8/10.No exacerbating or relieving factors. Past Medical History Previous Medical History?: Yes Hx Hypertension: Yes Hx Heart Attack/AMI: Yes Additional medical history: Chronic Back Pain - Surgical History Additional Surgical History: Hardware in back. Stents - Social History Smoking Status: Current Every Day Smoker Substance Use Type: Alcohol, Cocaine - Medications Home Medications: Home Medications Medication Instructions Recorded Confirmed Last Taken Type Cephalexin [Keflex] 500 mg PO Q8HR #21 cap 05/23/17 Unknown Rx Econazole 1% [Spectazole] 1 applicatio TP BID #1 tube 05/23/17 Unknown Rx Fluconazole [Diflucan TAB] 100 mg PO QDAY #2 tablet 05/23/17 Unknown Rx Ibuprofen [Motrin] 600 mg PO Q8H PRN #15 tablet 05/23/17 Unknown Rx Nitroglycerin [Nitrostat] 0.4 mg SL Q5M PRN #25 tab 05/28/17 Unknown Rx Cephalexin [Keflex] 500 mg PO Q8HR #21 cap 05/29/17 Unknown Rx Econazole 1% [Spectazole] 1 applicatio TP BID #1 tube 05/29/17 Unknown Rx Fluconazole [Diflucan] 100 mg PO QDAY #2 bottle 05/29/17 Unknown Rx Ibuprofen [Motrin 600 MG tab] 600 mg PO Q8H PRN #30 tablet 05/29/17 Unknown Rx Ibuprofen [Motrin 600 MG tab] 600 mg PO Q8H PRN #30 tablet 06/20/17 Unknown Rx Review of Systems ROS: Stated complaint: CP Other details as noted in HPI Constitutional: denies: chills, fever Eyes: denies: eye pain, eye discharge, vision change ENT: denies: ear pain, throat pain Respiratory: shortness of breath (only during this episode). denies: cough, wheezing Cardiovascular: chest pain. denies: palpitations Endocrine: no symptoms reported Gastrointestinal: denies: abdominal pain, nausea, diarrhea Genitourinary: denies: urgency, dysuria Musculoskeletal: denies: back pain, joint swelling, arthralgia Skin: denies: rash, lesions Neurological: denies: headache, weakness, paresthesias Psychiatric: denies: anxiety, depression Hematological/Lymphatic: denies: easy bleeding, easy bruising Medications and Allergies Allergies Allergy/AdvReac Type Severity Reaction Status Date / Time No Known Allergies Allergy Verified 06/20/17 10:58 Home Medications Medication Instructions Recorded Confirmed Last Taken Type Cephalexin [Keflex] 500 mg PO Q8HR #21 cap 05/23/17 Unknown Rx Econazole 1% [Spectazole] 1 applicatio TP BID #1 tube 05/23/17 Unknown Rx Fluconazole [Diflucan TAB] 100 mg PO QDAY #2 tablet 05/23/17 Unknown Rx Ibuprofen [Motrin] 600 mg PO Q8H PRN #15 tablet 05/23/17 Unknown Rx Nitroglycerin [Nitrostat] 0.4 mg SL Q5M PRN #25 tab 05/28/17 Unknown Rx Cephalexin [Keflex] 500 mg PO Q8HR #21 cap 05/29/17 Unknown Rx Econazole 1% [Spectazole] 1 applicatio TP BID #1 tube 05/29/17 Unknown Rx Fluconazole [Diflucan] 100 mg PO QDAY #2 bottle 05/29/17 Unknown Rx Ibuprofen [Motrin 600 MG tab] 600 mg PO Q8H PRN #30 tablet 05/29/17 Unknown Rx Ibuprofen [Motrin 600 MG tab] 600 mg PO Q8H PRN #30 tablet 06/20/17 Unknown Rx Exam - Constitutional Vitals: Temp Pulse Resp BP Pulse Ox 97.3 F L 47 L 22 106/58 95 11/18/17 10:17 11/18/17 17:46 11/18/17 17:46 11/18/17 17:46 11/18/17 17:46 General appearance: Present: no acute distress, well-nourished - EENT Eyes: Present: PERRL ENT: hearing intact, clear oral mucosa - Neck Neck: Present: supple, normal ROM - Respiratory Respiratory effort: normal Respiratory: bilateral: CTA - Cardiovascular Heart rate: 70 Rhythm: regular Heart Sounds: Present: S1 & S2. Absent: rub, click - Extremities Extremities: no ischemia, pulses intact, pulses symmetrical, No edema Peripheral Pulses: within normal limits - Abdominal General gastrointestinal: Present: soft, non-tender, non-distended, normal bowel sounds Male genitourinary: Present: normal - Rectal Rectal Exam: deferred - Integumentary Integumentary: Present: clear, warm, dry - Musculoskeletal Musculoskeletal: gait normal, strength equal bilaterally - Psychiatric Psychiatric: appropriate mood/affect, intact judgment & insight - Neurologic Neurologic: CNII-XII intact, moves all extremities - Allied Health Allied health notes reviewed: nursing Results - Labs CBC & Chem 7: 11/19/17 05:23 11/18/17 11:06 Labs: Laboratory Last Values WBC 4.2 K/mm3 (4.5-11.0) L 11/18/17 11:06 RBC 4.95 M/mm3 (3.65-5.03) 11/18/17 11:06 Hgb 13.1 gm/dl (11.8-15.2) 11/18/17 11:06 Hct 39.6 % (35.5-45.6) 11/18/17 11:06 MCV 80 fl (84-94) L 11/18/17 11:06 MCH 26 pg (28-32) L 11/18/17 11:06 MCHC 33 % (32-34) 11/18/17 11:06 RDW 16.0 % (13.2-15.2) H 11/18/17 11:06 Plt Count 223 K/mm3 (140-440) 11/18/17 11:06 Lymph % (Auto) 27.1 % (13.4-35.0) 11/18/17 11:06 [place] % (Auto) 7.6 % (0.0-7.3) H 11/18/17 11:06 Eos % (Auto) 3.6 % (0.0-4.3) 11/18/17 11:06 Baso % (Auto) 0.9 % (0.0-1.8) 11/18/17 11:06 Lymph # 1.1 K/mm3 (1.2-5.4) L 11/18/17 11:06 [place] # 0.3 K/mm3 (0.0-0.8) 11/18/17 11:06 Eos # 0.2 K/mm3 (0.0-0.4) 11/18/17 11:06 Baso # 0.0 K/mm3 (0.0-0.1) 11/18/17 11:06 Seg Neutrophils % 60.8 % (40.0-70.0) 11/18/17 11:06 Seg Neutrophils # 2.6 K/mm3 (1.8-7.7) 11/18/17 11:06 PT 14.5 Sec. (12.2-14.9) 11/18/17 14:05 INR 1.07 (0.87-1.13) 11/18/17 14:05 APTT 29.7 Sec. (24.2-36.6) 11/18/17 14:05 Sodium 137 mmol/L (137-145) 11/18/17 11:06 Potassium 4.1 mmol/L (3.6-5.0) 11/18/17 11:06 Chloride 100.5 mmol/L (98-107) 11/18/17 11:06 Carbon Dioxide 25 mmol/L (22-30) 11/18/17 11:06 Anion Gap 16 mmol/L 11/18/17 11:06 BUN 18 mg/dL (9-20) 11/18/17 11:06 Creatinine 1.1 mg/dL (0.8-1.5) 11/18/17 11:06 Estimated GFR > 60 ml/min 11/18/17 11:06 BUN/Creatinine Ratio 16 % 11/18/17 11:06 Glucose 92 mg/dL (75-100) 11/18/17 11:06 Calcium 9.3 mg/dL (8.4-10.2) 11/18/17 11:06 Magnesium 1.90 mg/dL (1.7-2.3) 11/18/17 14:05 Total Bilirubin 0.20 mg/dL (0.1-1.2) 11/18/17 14:05 Direct Bilirubin < 0.2 mg/dL (0-0.2) 11/18/17 14:05 Indirect Bilirubin 0.0 mg/dL 11/18/17 14:05 AST 21 units/L (5-40) 11/18/17 14:05 ALT 15 units/L (7-56) 11/18/17 14:05 Alkaline Phosphatase 57 units/L (35-129) 11/18/17 14:05 Troponin T < 0.010 ng/mL (0.00-0.029) 11/18/17 15:51 NT-Pro-B Natriuret Pep 126.6 pg/mL (0-900) 11/18/17 14:05 Total Protein 6.3 g/dL (6.3-8.2) 11/18/17 14:05 Albumin 4.0 g/dL (3.9-5) 11/18/17 14:05 Albumin/Globulin Ratio 1.7 % 11/18/17 14:05 Urine Color Straw (Yellow) 11/18/17 15:55 Urine Turbidity Clear (Clear) 11/18/17 15:55 Urine pH 7.0 (5.0-7.0) 11/18/17 15:55 Ur Specific [place] 1.008 (1.003-1.030) 11/18/17 15:55 Urine Protein <15 mg/dl mg/dL (Negative) 11/18/17 15:55 Urine Glucose (UA) Neg mg/dL (Negative) 11/18/17 15:55 Urine Ketones Neg mg/dL (Negative) 11/18/17 15:55 Urine Blood Neg (Negative) 11/18/17 15:55 Urine Nitrite Neg (Negative) 11/18/17 15:55 Urine Bilirubin Neg (Negative) 11/18/17 15:55 Urine Urobilinogen < 2.0 mg/dL (<2.0) 11/18/17 15:55 Ur Leukocyte Esterase Neg (Negative) 11/18/17 15:55 Urine WBC (Auto) < 1.0 /HPF (0.0-6.0) 11/18/17 15:55 Urine RBC (Auto) 1.0 /HPF (0.0-6.0) 11/18/17 15:55 Urine Opiates Screen Presumptive negative 11/18/17 15:55 Urine Methadone Screen Presumptive negative 11/18/17 15:55 Ur Barbiturates Screen Presumptive negative 11/18/17 15:55 Ur Phencyclidine Scrn Presumptive negative 11/18/17 15:55 Ur Amphetamines Screen Presumptive negative 11/18/17 15:55 U Benzodiazepines Scrn Presumptive negative 11/18/17 15:55 Urine Cocaine Screen Presumptive negative 11/18/17 15:55 U Marijuana (THC) Screen Presumptive negative 11/18/17 15:55 Drugs of Abuse Note Disclamer 11/18/17 15:55 Short CBC 11/18/17 11/19/17 Range/Units 11:06 05:23 WBC 4.2 L 4.4 L (4.5-11.0) K/mm3 Hgb 13.1 11.8 (11.8-15.2) gm/dl Hct 39.6 35.9 (35.5-45.6) % Plt Count 223 209 (140-440) K/mm3 BMP 11/18/17 11:06 Sodium 137 Potassium 4.1 Chloride 100.5 Carbon Dioxide 25 BUN 18 Creatinine 1.1 Glucose 92 Calcium 9.3 Cardiac Enzymes 11/18/17 11/18/17 11/18/17 Range/Units 11:06 13:42 15:51 Troponin T < 0.010 < 0.010 < 0.010 (0.00-0.029) ng/mL Liver Function 11/18/17 Range/Units 14:05 Total Bilirubin 0.20 (0.1-1.2) mg/dL Direct Bilirubin < 0.2 (0-0.2) mg/dL AST 21 (5-40) units/L ALT 15 (7-56) units/L Alkaline Phosphatase 57 (35-129) units/L Albumin 4.0 (3.9-5) g/dL Urine 11/18/17 Range/Units 15:55 Urine Color Straw (Yellow) Urine pH 7.0 (5.0-7.0) Ur Specific [place] 1.008 (1.003-1.030) Urine Protein <15 mg/dl (Negative) mg/dL Urine Glucose (UA) Neg (Negative) mg/dL - Imaging and Cardiology EKG: report reviewed Assessment and Plan Advance Directives: Yes (FC) VTE prophylaxis?: Chemical Plan of care discussed with patient/family: Yes - Patient Problems (1) Chest pain Current Visit: Yes Status: Acute Qualifiers: Chest pain type: unspecified Qualified Code(s): R07.9 - Chest pain, unspecified Plan to address problem: CHest pain w/u Serial CE's and Lexiscan in AM (2) HTN (hypertension) Current Visit: Yes Status: Chronic Qualifiers: Hypertension type: essential hypertension Qualified Code(s): I10 - Essential (primary) hypertension Plan to address problem: Cont antihypertensives (3) HIV (human immunodeficiency virus infection) Current Visit: Yes Status: Chronic Plan to address problem: Not on any antiretrovirals On Flucanozole (4) DVT prophylaxis Current Visit: Yes Status: Acute Plan to address problem: on Heparin
[2017-11-18] MEDS ORDERED: SODIUM CHLORIDE FLUSH SYRINGE 10 ML IV PRN (21:56)
[2017-11-18] MEDS ORDERED: ZOFRAN IV PRN (21:56)
[2017-11-18] MEDS ORDERED: MORPHINE IV PRN (21:56)
[2017-11-18] MEDS ORDERED: TYLENOL PO PRN (21:56)
[2017-11-18] MEDS ORDERED: AMBIEN PO PRN (21:56)
[2017-11-18] MEDS ORDERED: PERCOCET 5/325 PO PRN (21:56)
[2017-11-18] MEDS: HEPARIN SUB-Q SCH (22:27)
[2017-11-18] MEDS: SODIUM CHLORIDE FLUSH SYRINGE 10 ML IV SCH (22:27)
[2017-11-18] MEDS: PEPCID PO SCH (22:27)
[2017-11-18] MEDS: D5NS 1,000 ML IV SCH (22:29)
[2017-11-19] MEDS: DIFLUCAN PO SCH ×2 (03:01→22:07)
[2017-11-19 06:37] LABS: Eosinophils # (Auto) 0.2 K/mm3 (0.0-0.4); Eosinophils % (Auto) 4.1 % (0.0-4.3); Hematocrit 35.9 % (35.5-45.6); Hemoglobin 11.8 gm/dl (11.8-15.2); Lymphocytes # (Auto) 1.8 K/mm3 (1.2-5.4); Lymphocytes % (Auto) 39.9 % (13.4-35.0); Mean Corpuscular HGB Conc 33 % (32-34); Mean Corpuscular Hemoglobin 27 pg (28-32); Mean Corpuscular Volume 81 fl (84-94); Monocytes # (Auto) 0.3 K/mm3 (0.0-0.8); Monocytes % (Auto) 5.9 % (0.0-7.3); Platelet Count 209 K/mm3 (140-440); Red Blood Count 4.45 M/mm3 (3.65-5.03); Red Cell Distribution Width 16.3 % (13.2-15.2)
[2017-11-19 07:10] LABS: Alanine Aminotransferase 12 units/L (7-56); Albumin 3.7 g/dL (3.9-5); BUN/Creatinine Ratio 17; Blood Urea Nitrogen 17 mg/dL (9-20); Calcium 8.3 mg/dL (8.4-10.2); Hemolysis Index 1
[2017-11-19] MEDS: SODIUM CHLORIDE FLUSH SYRINGE 10 ML IV SCH ×2 (09:37→22:30)
[2017-11-19] MEDS: ZESTRIL PO SCH (10:36)
[2017-11-19] MEDS: PEPCID PO SCH ×2 (10:37→22:07)
[2017-11-19] MEDS: HEPARIN SUB-Q SCH ×2 (10:37→22:09)
[2017-11-19] MEDS: D5NS 1,000 ML IV SCH ×2 (11:31→22:09)
--- NOTE | 2017-11-19 12:55 | Progress Note ---
Assessment and Plan Atypical Chest pain HTN HIV Continue with oxygen, ASA, NTG and morphine For Lexiscan stress test Optimize BP control DVT PPX with Heparin Subjective Date of service: 11/19/17 Principal diagnosis: Chest pain, HTN,HIV Interval history: Pt seen and examined. Having no more chest pain. Objective - Constitutional Vitals: Vital Signs - 12hr 11/19/17 11/19/17 11/19/17 02:10 08:00 08:06 Temperature 97.8 F 97.8 F Pulse Rate 48 L 48 L 47 L Respiratory 20 20 Rate Blood Pressure 99/58 111/59 [Left] O2 Sat by Pulse 99 100 Oximetry 11/19/17 09:10 Temperature 97.7 F Pulse Rate 58 L Respiratory 18 Rate Blood Pressure 125/65 [Left] O2 Sat by Pulse 100 Oximetry General appearance: Present: no acute distress, well-nourished - EENT Eyes: PERRL, EOM intact - Neck Neck: supple, normal ROM - Respiratory Respiratory effort: normal Respiratory: bilateral: CTA - Cardiovascular Rhythm: regular Heart Sounds: Present: S1 & S2. Absent: gallop, rub Extremities: pulses intact, No edema, normal color, Full ROM - Gastrointestinal General gastrointestinal: Present: soft, non-tender, non-distended, normal bowel sounds - Integumentary Integumentary: clear, warm, dry - Musculoskeletal Musculoskeletal: 1, strength equal bilaterally - Neurologic Neurologic: moves all extremities - Psychiatric Psychiatric: memory intact, appropriate mood/affect, intact judgment & insight - Labs CBC & Chem 7: 11/19/17 05:23 11/19/17 05:23 Labs: Abnormal lab results 11/19/17 11/19/17 Range/Units 05:23 05:23 WBC 4.4 L (4.5-11.0) K/mm3 MCV 81 L (84-94) fl MCH 27 L (28-32) pg RDW 16.3 H (13.2-15.2) % Lymph % (Auto) 39.9 H (13.4-35.0) % Calcium 8.3 L (8.4-10.2) mg/dL Total Protein 6.0 L (6.3-8.2) g/dL Albumin 3.7 L (3.9-5) g/dL
[2017-11-20 09:04] VITALS: BP 123/79
[2017-11-20] MEDS: D5NS 1,000 ML IV SCH (09:36)
[2017-11-20] MEDS: HEPARIN SUB-Q SCH (09:37)
[2017-11-20] MEDS: ZESTRIL PO SCH (09:37)
[2017-11-20] MEDS: PEPCID PO SCH (09:37)
[2017-11-20] MEDS: SODIUM CHLORIDE FLUSH SYRINGE 10 ML IV SCH (09:41)
--- NOTE | 2017-11-20 12:23 | Progress Note ---
Assessment and Plan Assessment and plan: Atypical Chest pain -serial troponin levels normal. -for echocardiogram and NST in am -cardiology consulted HTN -controlled Sinus bradycardia. -Cardiology consulted. History of HIV -Not on HAART -Continue Diflucan. Disposition: Discharge pending further evaluation. History Interval history: Patient is a 62-year-old male admitted for chest pain. He denies chest pain or shortness of breath. Hospitalist Physical - Constitutional Vitals: Temp Pulse Resp BP Pulse Ox 97.8 F 43 L 18 123/79 98 11/20/17 08:38 11/20/17 08:38 11/20/17 08:38 11/20/17 08:38 11/20/17 08:38 General appearance: Present: no acute distress, well-nourished - EENT Eyes: Present: PERRL, EOM intact ENT: hearing intact - Neck Neck: Present: supple - Respiratory Respiratory effort: normal Respiratory: bilateral: CTA - Cardiovascular Rhythm: other (bradycardia) Heart Sounds: Present: S1 & S2 - Extremities Extremities: No edema - Abdominal General gastrointestinal: soft, non-tender, normal bowel sounds - Integumentary Integumentary: Present: dry - Neurologic Neurologic: CNII-XII intact Results - Labs CBC & Chem 7: 11/19/17 05:23 11/19/17 05:23 Labs: Laboratory Last Values WBC 4.4 K/mm3 (4.5-11.0) L 11/19/17 05:23 RBC 4.45 M/mm3 (3.65-5.03) 11/19/17 05:23 Hgb 11.8 gm/dl (11.8-15.2) 11/19/17 05:23 Hct 35.9 % (35.5-45.6) 11/19/17 05:23 MCV 81 fl (84-94) L 11/19/17 05:23 MCH 27 pg (28-32) L 11/19/17 05:23 MCHC 33 % (32-34) 11/19/17 05:23 RDW 16.3 % (13.2-15.2) H 11/19/17 05:23 Plt Count 209 K/mm3 (140-440) 11/19/17 05:23 Lymph % (Auto) 39.9 % (13.4-35.0) H 11/19/17 05:23 [place] % (Auto) 5.9 % (0.0-7.3) 11/19/17 05:23 Eos % (Auto) 4.1 % (0.0-4.3) 11/19/17 05:23 Baso % (Auto) 1.0 % (0.0-1.8) 11/19/17 05:23 Lymph # 1.8 K/mm3 (1.2-5.4) 11/19/17 05:23 [place] # 0.3 K/mm3 (0.0-0.8) 11/19/17 05:23 Eos # 0.2 K/mm3 (0.0-0.4) 11/19/17 05:23 Baso # 0.0 K/mm3 (0.0-0.1) 11/19/17 05:23 Seg Neutrophils % 49.1 % (40.0-70.0) 11/19/17 05:23 Seg Neutrophils # 2.2 K/mm3 (1.8-7.7) 11/19/17 05:23 PT 14.5 Sec. (12.2-14.9) 11/18/17 14:05 INR 1.07 (0.87-1.13) 11/18/17 14:05 APTT 29.7 Sec. (24.2-36.6) 11/18/17 14:05 Sodium 141 mmol/L (137-145) 11/19/17 05:23 Potassium 4.0 mmol/L (3.6-5.0) 11/19/17 05:23 Chloride 103.0 mmol/L (98-107) 11/19/17 05:23 Carbon Dioxide 26 mmol/L (22-30) 11/19/17 05:23 Anion Gap 16 mmol/L 11/19/17 05:23 BUN 17 mg/dL (9-20) 11/19/17 05:23 Creatinine 1.0 mg/dL (0.8-1.5) 11/19/17 05:23 Estimated GFR > 60 ml/min 11/19/17 05:23 BUN/Creatinine Ratio 17 % 11/19/17 05:23 Glucose 84 mg/dL (75-100) 11/19/17 05:23 Hemoglobin A1c 5.3 % (4-6) 11/19/17 00:01 Calcium 8.3 mg/dL (8.4-10.2) L 11/19/17 05:23 Magnesium 1.90 mg/dL (1.7-2.3) 11/18/17 14:05 Total Bilirubin < 0.20 mg/dL (0.1-1.2) 11/19/17 05:23 Direct Bilirubin < 0.2 mg/dL (0-0.2) 11/18/17 14:05 Indirect Bilirubin 0.0 mg/dL 11/18/17 14:05 AST 17 units/L (5-40) 11/19/17 05:23 ALT 12 units/L (7-56) 11/19/17 05:23 Alkaline Phosphatase 56 units/L (35-129) 11/19/17 05:23 Troponin T < 0.010 ng/mL (0.00-0.029) 11/18/17 15:51 NT-Pro-B Natriuret Pep 126.6 pg/mL (0-900) 11/18/17 14:05 Total Protein 6.0 g/dL (6.3-8.2) L 11/19/17 05:23 Albumin 3.7 g/dL (3.9-5) L 11/19/17 05:23 Albumin/Globulin Ratio 1.6 % 11/19/17 05:23 Urine Color Straw (Yellow) 11/18/17 15:55 Urine Turbidity Clear (Clear) 11/18/17 15:55 Urine pH 7.0 (5.0-7.0) 11/18/17 15:55 Ur Specific [place] 1.008 (1.003-1.030) 11/18/17 15:55 Urine Protein <15 mg/dl mg/dL (Negative) 11/18/17 15:55 Urine Glucose (UA) Neg mg/dL (Negative) 11/18/17 15:55 Urine Ketones Neg mg/dL (Negative) 11/18/17 15:55 Urine Blood Neg (Negative) 11/18/17 15:55 Urine Nitrite Neg (Negative) 11/18/17 15:55 Urine Bilirubin Neg (Negative) 11/18/17 15:55 Urine Urobilinogen < 2.0 mg/dL (<2.0) 11/18/17 15:55 Ur Leukocyte Esterase Neg (Negative) 11/18/17 15:55 Urine WBC (Auto) < 1.0 /HPF (0.0-6.0) 11/18/17 15:55 Urine RBC (Auto) 1.0 /HPF (0.0-6.0) 11/18/17 15:55 Urine Opiates Screen Presumptive negative 11/18/17 15:55 Urine Methadone Screen Presumptive negative 11/18/17 15:55 Ur Barbiturates Screen Presumptive negative 11/18/17 15:55 Ur Phencyclidine Scrn Presumptive negative 11/18/17 15:55 Ur Amphetamines Screen Presumptive negative 11/18/17 15:55 U Benzodiazepines Scrn Presumptive negative 11/18/17 15:55 Urine Cocaine Screen Presumptive negative 11/18/17 15:55 U Marijuana (THC) Screen Presumptive negative 11/18/17 15:55 Drugs of Abuse Note Disclamer 11/18/17 15:55
--- NOTE | 2017-11-20 13:25 | Event Note ---
Date: 11/20/17 Attempted to see pt for cardiac consultation. However, pt has just signed out AMA and refuses any additional noninvasive or invasive cardiac testing at this time. Pt wishes to return to [place] to complete his treatment. Please call if pt decides to stay. Annamaria MOSELEY NP / DR. NEAL
[2017-11-20] MEDS ORDERED: ASPIRIN PO SCH (14:00)
--- NOTE | 2017-11-20 16:31 | Discharge Summary ---
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 Serial troponin levels done were negative. Due to the patient's high risk factors, subsequent plan was for him to undergo nuclear stress testing. However he signed AGAINST MEDICAL ADVICE. Disposition: TO HOME OR SELFCARE Core Measure Documentation - Palliative Care Palliative Care/ Comfort Measures: Not Applicable - Core Measures Any of the following diagnoses?: none Exam - Constitutional Vitals: Temp Pulse Resp BP Pulse Ox 97.8 F 43 L 18 123/79 98 11/20/17 08:38 11/20/17 08:38 11/20/17 08:38 11/20/17 08:38 11/20/17 08:38 General appearance: Present: no acute distress, well-nourished - EENT Eyes: Present: PERRL ENT: hearing intact, clear oral mucosa - Neck Neck: Present: supple, normal ROM - Respiratory Respiratory effort: normal Respiratory: bilateral: CTA - Cardiovascular Heart Sounds: Present: S1 & S2. Absent: rub, click - Extremities Extremities: pulses symmetrical, No edema Peripheral Pulses: within normal limits - Abdominal General gastrointestinal: Present: soft, non-tender, non-distended, normal bowel sounds Male genitourinary: Present: normal - Integumentary Integumentary: Present: clear, warm, dry - Musculoskeletal Musculoskeletal: gait normal, strength equal bilaterally - Psychiatric Psychiatric: appropriate mood/affect, intact judgment & insight - Neurologic Neurologic: CNII-XII intact, moves all extremities Plan Activity: no restrictions Weight Bearing Status: Full Weight Bearing Diet: low fat, low cholesterol, low salt Follow up with: PRIMARY CARE, [Primary Care Provider] - 3-5 Days Forms: AMA Form, Work/School Release Form
== END 2017-11-20 14:01 | disposition home or self-care (01) ==
LOC: ED 10:05 → 4A 16:46 → INTOOBSV 16:46 → 4A 17:45
PROVIDERS: ADMIT Internal Medicine; ATTEND Internal Medicine
DX: R07.89 Other chest pain (principal); I10 Essential (primary) hypertension; I25.10 Atherosclerotic heart disease of native coronary artery without angina pectoris; I25.2 Old myocardial infarction; G89.29 Other chronic pain; M54.9 Dorsalgia, unspecified; B20 Human immunodeficiency virus [HIV] disease; R00.1 Bradycardia, unspecified; Z53.21 Procedure and treatment not carried out due to patient leaving prior to being seen by health care provider; F17.200 Nicotine dependence, unspecified, uncomplicated; Z95.5 Presence of coronary angioplasty implant and graft
CPT/HCPCS: 36415; 71045; 80048; 80053; 80074; 80307; 81001; 83036; 83735; 83880; 84484; 85025; 85610; 85730; 93005; 93010; 96360; 96361; 96372; 99285; G0378; J1644; J7030; J7042

== ENCOUNTER 2017-11-20 18:11 | Emergency (ER) | payer MEDICARE ==
[2017-11-20 22:26] VITALS: BP 144/100
== END 2017-11-21 03:00 | disposition left against medical advice (07) ==
LOC: ED 18:11
DX: F43.9 Reaction to severe stress, unspecified (principal); Z53.21 Procedure and treatment not carried out due to patient leaving prior to being seen by health care provider

== ENCOUNTER 2019-04-23 10:16 | Emergency (ER) | payer MEDICARE ==
[2019-04-23 10:55] VITALS: BP 158/95
[2019-04-23] MEDS ORDERED: DELTASONE PO ONE (11:47)
--- NOTE | 2019-04-23 11:50 | Emergency Department Report ---
HPI - General Chief Complaint: Back Pain/Injury Time Seen by Provider: 04/23/19 11:17 - HPI HPI: 64-year-old AA male presents to the emergency department with complaint of some right lower lateral back pain that has been going on since yesterday. The kapil ent was trying to help someone lift some couches and appears to have reinjured his back. He does have a history of chronic back pains and has had multiple back surgeries in the past. He is currently at the [employer] and says that he graduates on Monday and will then return to [facility], where he has a primary care physician and back surgeon that he can follow-up with. He has not taken anything for her symptoms prior to presentation. He denies any problems with bowel or bladder, numbness or paresthesias, ambulation, or any neurological deficits. ED Past Medical Hx - Past Medical History Previous Medical History?: Yes Hx Hypertension: Yes Hx Heart Attack/AMI: Yes Additional medical history: Chronic Back Pain - Surgical History Past Surgical History?: Yes Hx Coronary Stent: Yes Additional Surgical History: Hardware in back. Stents - Social History Smoking Status: Never Smoker Substance Use Type: None - Medications Home Medications: Home Medications Medication Instructions Recorded Confirmed Last Taken Type Quetiapine Fumarate (Nf) [SEROquel 100 mg PO QHS 11/22/17 11/22/17 Unknown History XR] Aspirin [Aspirin BABY CHEW TAB] 81 mg PO QDAY #30 tab.chew 11/23/17 Unknown Rx AtorvaSTATin [Lipitor] 20 mg PO QHS tablet 11/23/17 Unknown Rx Atorvastatin [Lipitor] 40 mg PO QHS #30 tablet 11/23/17 Unknown Rx Clopidogrel [Plavix] 75 mg PO DAILY #30 tablet 11/23/17 Unknown Rx Disulfiram (Nf) [Antabuse (Nf)] 250 mg PO DAILY #30 tablet 11/23/17 Unknown Rx Isosorbide Dinitrate 30 mg PO DAILY #30 tablet 11/23/17 Unknown Rx Lisinopril [Zestril TAB] 20 mg PO DAILY #30 tablet 11/23/17 Unknown Rx Metoprolol Xl [Metoprolol 12.5 mg PO DAILY #30 tablet 11/23/17 Unknown Rx SUCCINATE ER TAB] Sertraline [Zoloft] 50 mg PO QDAY tablet 11/23/17 Unknown Rx hydroCHLOROthiazide [HCTZ] 12.5 mg PO QDAY #30 capsule 11/23/17 Unknown Rx Prednisone [predniSONE 5 mg (6-Day 5 mg PO .TAPER #1 tab.ds.pk 04/23/19 Unknown Rx Pack, 21 Tabs)] ED Review of Systems ROS: Stated complaint: BACK PAIN Other details as noted in HPI Comment: All other systems reviewed and negative Constitutional: denies: chills, fever Musculoskeletal: back pain. denies: arthralgia Neurological: denies: numbness, paresthesias Physical Exam - Physical Exam Vital Signs: Vital Signs 04/23/19 10:54 Temperature 98.1 F Pulse Rate 74 Respiratory 16 Rate Blood Pressure 158/95 O2 Sat by Pulse 99 Oximetry Physical Exam: GENERAL: The patient is well-developed well-nourished. HENT: Normocephalic. Atraumatic. Patient has moist mucous membranes. EYES: Extraocular motions are intact. NECK: Supple. Trachea is midline. CHEST/LUNGS: Clear to auscultation. There is no respiratory distress noted. HEART/CARDIOVASCULAR: Regular. There is no tachycardia. There is no murmur. ABDOMEN: Abdomen is soft, nontender. Patient has normal bowel sounds. SKIN: Skin is warm and dry. NEURO: The patient is awake, alert, and oriented. The patient is cooperative. The patient has no focal neurologic deficits. Normal speech. Muscle strength 5 out of 5 upper and lower extremity bilaterally. MUSCULOSKELETAL: There is no tenderness or deformity. There is no limitation range of motion. There is no evidence of acute injury. BACK: There is some right lower lateral lumbar tenderness to palpation. No midline tenderness to palpation, step-off or deformity. ED Course Vital Signs 04/23/19 10:54 Temperature 98.1 F Pulse Rate 74 Respiratory 16 Rate Blood Pressure 158/95 O2 Sat by Pulse 99 Oximetry ED Medical Decision Making - Medical Decision Making Patient presents with some acute on chronic low back pain after trying to help lift some heavy couches for someone else. He is asking for some steroids as that has helped him in the past with back pain exacerbations. Since there was no other obvious trauma, fall and he does not have any deficits, I did not feel that any x-ray or CT imaging was necessary at this time. He has good follow-up once he is able to return [place] in a few days. He does not have any problems with bowel or bladder, numbness or paresthesias or any neurological deficits. He appears low suspicion for any of the emergent back condition such as cauda equina, epidural abscess or cord compression syndrome. He has been instructed to return to the emergency Department with any worsening of his symptoms or any acute distress. - Differential Diagnosis lumbar strain, muscle spasm, disc bulging/herniation Critical Care Time: No Critical care attestation.: If time is entered above; I have spent that time in minutes in the direct care of this critically ill patient, excluding procedure time. ED Disposition Clinical Impression: Back pain Qualifiers: Back pain location: low back pain Chronicity: unspecified Back pain laterality: bilateral Sciatica presence: without sciatica Qualified Code(s): M54.5 - Low back pain HTN (hypertension) Qualifiers: Hypertension type: essential hypertension Qualified Code(s): I10 - Essential (primary) hypertension Disposition: TO HOME OR SELFCARE Is pt being admited?: No Condition: Stable Instructions: Hypertension (ED), Back Pain (ED) Additional Instructions: Please follow-up with your primary care and back surgeon as soon as you are able to do so. Return to the emergency Department with any worsening of your symptoms or any acute distress. Prescriptions: Prednisone [predniSONE 5 mg (6-Day Pack, 21 Tabs)] 5 mg PO .TAPER #1 tab.dstracee Referrals: PRIMARY CARE, [Primary Care Provider] - 2-3 Days Time of Disposition: 11:50
== END 2019-04-23 12:00 | disposition home or self-care (01) ==
LOC: ED 10:16
DX: M54.5 Low back pain (principal); I10 Essential (primary) hypertension; G89.29 Other chronic pain; Z95.1 Presence of aortocoronary bypass graft; Z79.82 Long term (current) use of aspirin; Z79.899 Other long term (current) drug therapy
CPT/HCPCS: 99282; J7512